=== PATIENT | male | born 1955 | race Caucasian/White ===

== ENCOUNTER → 2017-07-07 | Outpatient (CLI) | payer BC ==
[~2017-07-07] MED LIST: HYDR-2762 PO; LISI10TA2 PO; SILD20TA2 PO; TEST200V3 IM
--- NOTE | 2017-07-07 13:09 | EKG ---
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
[2017-07-07 13:14] LABS: BASO % 1 % (0-3); EOS % 1 % (0-3); HEMATOCRIT 43.9 % (39.0-53.0); HEMOGLOBIN 14.8 g/dL (13.0-17.5); LYMPH # 1.2 x10^3/uL (1.0-4.8); LYMPH % 22 % (24-48); MEAN CORPUSCULAR HEMOGLOBIN 32 pg (25-35); MEAN CORPUSCULAR HGB CONC 34 g/dL (31-37); MEAN CORPUSCULAR VOLUME 95 fL (79-100); MONO % 9 % (0-9); NEUT % 68 % (31-73); PLATELET COUNT 253 x10^3/uL (140-400); RED BLOOD COUNT 4.64 x10^6/uL (4.30-5.70); RED CELL DISTRIBUTION WIDTH 13.7 % (11.5-14.5); WHITE BLOOD COUNT 5.7 x10^3/uL (4.0-11.0)
[2017-07-07 13:35] LABS: INR 1.1 (0.8-1.1); PROTHROMBIN TIME PATIENT 13.2 SEC (11.7-14.0)
[2017-07-07 13:59] LABS: ALBUMIN 3.6 g/dL (3.4-5.0); ALBUMIN/GLOBULIN RATIO 1.2 (1.0-1.7); CALCIUM 8.6 mg/dL (8.5-10.1); GFR 75.7; POTASSIUM 3.7 mmol/L (3.5-5.1); TOTAL BILIRUBIN 0.9 mg/dL (0.2-1.0); TOTAL PROTEIN 6.6 g/dL (6.4-8.2)
--- NOTE | 2017-07-09 14:01 | PREOP HP ---
DATE OF SERVICE: 07/14/2017 Dimitri Elder [address]ating for Dr. Adriel Mason. HISTORY OF PRESENT ILLNESS: The patient is a pleasant 62-year-old, who over the last several years has had problems with increasing lower back pain and pain which radiates into his buttocks. The left leg did have significant pain as well as that, but the problem improved significantly. If anything, his back has worsened recently. He says since January of this year, the pain has become much worse. He rates his pain as a ____ and 8/10. Changing position seems to worsen with the problem. He takes [place] for pain. He had epidural steroid injections which helped temporarily but offered no lasting relief. He is scheduled to start physical therapy tomorrow. PAST MEDICAL HISTORY: Arthritis and hypertension. PAST SURGICAL HISTORY: Abdomen surgery in 2004. 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 . Exercises daily. Denies tobacco use. Drinks 2 drinks daily. Drinks coffee daily. ALLERGIES: No known drug allergies. CURRENT MEDICATIONS: Lisinopril, testosterone and [place]. REVIEW OF SYSTEMS: A 12-point review of systems was obtained and is noncontributory, except for that mentioned above. NEUROSURGERY EXAMINATION: GENERAL APPEARANCE: Alert, pleasant, in no acute distress. HEAD: Normocephalic and atraumatic. SKIN: Warm and dry. MUSCULOSKELETAL: Lumbar paraspinal muscle bulk is normal, restricted range of motion of the lumbar spine, mild to moderate tenderness of the lower lumbar spine with palpation, normal range of motion of the lower extremities bilaterally. EXTREMITIES: No clubbing, cyanosis or edema. NEUROLOGIC: Alert and oriented x 3, normal recent and remote memory, strength 5/5 in bilateral lower extremities, sensory was intact to light touch in the lower extremities bilaterally, reflexes were trace and symmetric in bilateral lower extremities, positive straight leg raising on the left with left-sided back, buttock and posterior thigh pain and negative straight leg raising on the right, normal gait. IMAGING REVIEW: I reviewed his imaging studies. There is severe central canal stenosis at L4-L5 due to a combination of 10 mm right-sided synovial cyst as well as facet arthropathy and a ligamentum flavum thickening. There is also a small 5 mm subligamentous left-sided synovial cyst present. After I saw him last, I did obtain lumbar flexion and extension x-rays in which there was mild anterior subluxation of L4-L5 and extension, which significantly worsens with flexion, suggesting instability. ASSESSMENT: 1. Spinal stenosis, lumbar region. 2. Spondylolisthesis, lumbar region. 3. Other bursal cyst, unspecified site. PLAN: He has severe lumbar spinal stenosis at L4-L5 along with bilateral synovial cysts present. There is significant motion on flexion and extension x-rays. My recommendation is he undergo wide decompression at L4-L5 with removal of the synovial cyst. This can be combined with an instrumented lumbar fusion. I spoke with him about the anterior and posterior surgery. I spoke about the technique of the operation including the risk of nerve injury and infection. He understands. He would like to go ahead. We will make the arrangements. ADRIEL MASON MD DR: BRUNILDA/anna JOB#: [id number] / [id number]
== END | disposition home or self-care (01) ==
LOC: SURGPAT 11:55
PROVIDERS: ATTEND Neurological Surgery
DX: M48.06 Spinal stenosis, lumbar region (principal); M43.16 Spondylolisthesis, lumbar region; M71.38 Other bursal cyst, other site
CPT/HCPCS: 36415; 80053; 85025; 85610; 85730; 87641; 93005

== ENCOUNTER → 2020-06-03 | Outpatient (CLI) | payer MEDICARE ==
[2017-07-15 11:15] VITALS: BP 117/77
[~2020-06-03] MED LIST changes: +ASPI1TAB31 PO; +DOCU-109 PO; -HYDR-2762 PO; +HYDR-2765 PO; +METH-38 PO; +METH750T2 PO; +OXYC1TAB7 PO; -SILD20TA2 PO; +SILD20TA4 PO
[2020-06-03 14:04] LABS: BASO % 1 % (0-3); EOS # 0.1 x10^3/uL (0.0-0.7); EOS % 2 % (0-3); HEMATOCRIT 41.9 % (39.0-53.0); HEMOGLOBIN 14.5 g/dL (13.0-17.5); LYMPH # 1.2 x10^3/uL (1.0-4.8); LYMPH % 29 % (24-48); MEAN CORPUSCULAR HEMOGLOBIN 32 pg (25-35); MEAN CORPUSCULAR HGB CONC 35 g/dL (31-37); MEAN CORPUSCULAR VOLUME 92 fL (79-100); MONO # 0.4 x10^3/uL (0.0-1.1); MONO % 10 % (0-9); NEUT # 2.5 x10^3/uL (1.8-7.7); NEUT % 59 % (31-73); PLATELET COUNT 261 x10^3/uL (140-400); RED BLOOD COUNT 4.58 x10^6/uL (4.30-5.70); RED CELL DISTRIBUTION WIDTH 14.5 % (11.5-14.5); WHITE BLOOD COUNT 4.3 x10^3/uL (4.0-11.0)
[2020-06-03 14:40] LABS: ALBUMIN 3.7 g/dL (3.4-5.0); ALBUMIN/GLOBULIN RATIO 1.4 (1.0-1.7); CALCIUM 8.9 mg/dL (8.5-10.1); POTASSIUM 4.2 mmol/L (3.5-5.1); TOTAL BILIRUBIN 0.7 mg/dL (0.2-1.0); TOTAL PROTEIN 6.4 g/dL (6.4-8.2)
== END ==
LOC: SURGPAT 13:12
PROVIDERS: ATTEND Neurological Surgery
DX: Z01.818 Encounter for other preprocedural examination (principal); Z11.59 Encounter for screening for other viral diseases; M50.13 Cervical disc disorder with radiculopathy, cervicothoracic region
CPT/HCPCS: 80053; 85025; 87641; U0003; 36415

== ENCOUNTER 2020-06-06 07:20 | Day surgery (SDC) | payer MEDICARE, OTHER ==
--- NOTE | 2020-06-05 12:46 | HP ---
ADMIT DATE: 06/06/2020 DATE OF SURGERY: 06/06/2020 HISTORY OF PRESENT ILLNESS: The patient is a pleasant 65-year-old, who has difficulty with right hand weakness. 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 He says his index finger is weak. He notes tingling and numbness in the fingers of his right hand. He said this problem has been occurring since 2003. It had become much more significant recently. He said a few months ago, he painted his house and that he noticed this problem. His neck pain has not been an issue for him. He did have physical therapy about 4 weeks ago, which did not help. The left side is not involved. PAST MEDICAL HISTORY: Arthritis, hypertension, thumb surgery in 2004 and a lumbar decompression and fusion at L4-L5 in 06/2017. FAMILY HISTORY: Cancer. 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 . Exercises daily. Denies tobacco use. Drinks 2 alcoholic drinks daily. Drinks coffee daily. ALLERGIES: No known drug allergies. CURRENT MEDICATIONS: Multivitamin, omega 3, probiotic. REVIEW OF SYSTEMS: A 12-point review of systems was obtained and is noncontributory except for that mentioned above. PHYSICAL EXAMINATION: NEUROSURGERY EXAMINATION: GENERAL APPEARANCE: Alert, pleasant, no acute distress. HEAD: Normocephalic and atraumatic. NECK AND THYROID: Vtbn-gw-ogeonnzl tenderness with palpation of posterior cervical region. SKIN: Warm and dry. MUSCULOSKELETAL: Cervical paraspinal muscle bulk is normal, restricted range of motion of the cervical spine, normal range of motion of the upper extremities bilaterally. EXTREMITIES: No clubbing, cyanosis or edema. NEUROLOGIC: Alert and oriented x 3, normal recent and remote memory, strength 5/5 in bilateral upper and lower extremities except for an inability to hyperextend the right index finger, weakness of the flexor digiti quinti minimi, 4/5 strength of abduction and adduction of the right hand. I thought his opponens pollicis was a 5/5, sensory was intact to light touch in the upper and lower extremities except for decreased involving the little finger and ulnar side of the palm to light touch. Reflexes are present and symmetric in the upper and lower extremities bilaterally, normal gait. IMAGING: I reviewed his cervical MRI scan. He does have a moderate stenosis at C3-C4. At C7-T1 on the right, there is a focal disc herniation in the neural foramen. This does encroach upon the right C8 nerve root. I also reviewed an EMG nerve conduction study, which is consistent with C8 radiculopathy. ASSESSMENT/ PLAN: Most likely, we are dealing with a C8 radiculopathy, which has been confirmed with an EMG nerve conduction study. I spoke with him about the posterior cervical decompressive surgery/discectomy. I discussed the surgery and the risks as well as the postoperative course. He understands. He would like to go ahead. We will make the arrangements. RICARDO MASON MD DR: BRUNILDA/anna JOB#: [id number] / [id number] KASH
[~2020-06-06 07:20] MED LIST changes: +BACITRACIN 50,000 UNIT in IV NORMAL SALINE 1000ML BAG 1,000 ML IRR ONE; -DOCU-109 PO; +HYDROmorphone 2 MG/ML VIAL IV PRN; +IV RINGERS,LACTATED 1000ML 1,000 ML IV SCH; -METH-38 PO; +MORPHINE SULFATE 2 MG/ML VIAL. IV PRN; +ONDANSETRON PF 4 MG/2 ML VIAL. IV PRN; +PROCHLORPERAZINE 10 MG/2 ML VIAL. IV PRN; +fentaNYL PF VIAL 100 MCG/2 ML VIAL IV PRN
[2020-06-06] MEDS ORDERED: THROMBIN TOPICAL 20,000 UNIT SPRAY.SYRN KIT TP ONE (07:29)
[2020-06-06] MEDS ORDERED: BUPIVACAINE-EPI 0.5%-1:200000 MPF 30 ML VIAL. ONE (07:29)
[2020-06-06] MEDS ORDERED: KETOROLAC 60 MG/2 ML VIAL. ONE (07:29)
[2020-06-06] MEDS ORDERED: GELATIN SPONGE SIZE 100. ONE (07:29)
[2020-06-06] MEDS ORDERED: PHENYLEPHRINE 10 MG/ML VIAL. ONE (07:45)
[2020-06-06] MEDS ORDERED: ONDANSETRON PF 4 MG/2 ML VIAL. ONE (07:45)
[2020-06-06] MEDS ORDERED: REMIFENTANIL 2 MG VIAL. IV ONE (07:45)
[2020-06-06] MEDS ORDERED: SUCCINYLCHOLINE 200 MG/10 ML VIAL. ONE (07:45)
[2020-06-06] MEDS ORDERED: ROCURONIUM 50 MG/5 ML VIAL. ONE (07:45)
[2020-06-06] MEDS ORDERED: DEXAMETHASONE SOD PHOS 4 MG/ML VIAL ONE (07:45)
[2020-06-06] MEDS ORDERED: LIDOCAINE 2% PF 5 ML VIAL. ONE (07:45)
[2020-06-06] MEDS ORDERED: fentaNYL PF VIAL 100 MCG/2 ML VIAL ONE ×2 (07:45→12:23)
[2020-06-06] MEDS ORDERED: PROPOFOL 10 MG/ML (20ML) VIAL. IV ONE (07:45)
[2020-06-06] MEDS ORDERED: PROPOFOL 50 ML IV ONE ×2 (07:46→09:47)
[2020-06-06] MEDS ORDERED: 0.9 % SODIUM CHLORIDE 20 ML VIAL. IJ ONE (07:46)
[2020-06-06] MEDS ORDERED: VANCOMYCIN 1GM IVPB FOR OMNI 250 ML IV STA (07:58)
[2020-06-06] MEDS ORDERED: VANCOMYCIN 1GM IVPB FOR OMNI 250 ML ONE (08:04)
[2020-06-06] MEDS ORDERED: HYDROmorphone 2 MG/ML VIAL ONE (09:55)
[2020-06-06] MEDS ORDERED: GLYCOPYRROLATE 1 MG/5 ML VIAL. ONE (11:03)
[2020-06-06] MEDS ORDERED: NEOSTIGMINE METHYLSULFATE 5 MG/5 ML SYRINGE. ONE (11:03)
[2020-06-06] MEDS ORDERED: METH-38 PO (11:26)
[2020-06-06] MEDS ORDERED: HYDR-2765 PO (11:26)
[2020-06-06] MEDS ORDERED: DOCU-109 PO (11:26)
--- NOTE | 2020-06-06 11:27 | DISCH ---
DISCHARGE INSTRUCTIONS Condition on Discharge Condition on Discharge: Stable Activity After Discharge Activity Instructions for Disc: Activity as tolerated, Avoid exertion Other activity instructions: no driving for a week Bathing Instructions: Shower-keep dressing dry Lifting Instructions after Dis: No heavy lifting, No pulling or pushing, Do not lift >10 pounds Diet after Discharge Additional Diet Restrictions: resume home diet Wound Incision Care Wound/Incision Care: Ice to area for comfort Other wound/incision instructi: may remove dressing in 48 hours if dry then may shower, no soaking Contacting the after DC Call your doctor for: Concerns you may have Follow-Up Follow up with: Dr. Mason's nurse in 2 weeks [phone] RICARDO MASON MD Jun 06, 2020 11:27
--- NOTE | 2020-06-06 11:44 | OP ---
DATE OF SURGERY: 06/06/2020 PREOPERATIVE DIAGNOSIS: Herniated cervical disc, C7-T1 right with right cervical radiculopathy. POSTOPERATIVE DIAGNOSIS: Herniated cervical disc, C7-T1 right with right cervical radiculopathy. OPERATION PERFORMED: Hemilaminotomy and medial facetotomy, C6-C7 right with removal of HNP and decompression of the right C8 nerve root. The operation was done with EMG monitoring, SSEP monitoring, fluoroscopy, microscopic dissection, motor evoked potentials. SURGEON: Adriel Mason M.D. FIELD CROP GROWER: GRAHAM Valdivia assisted with the surgery. She assisted with the exposure, the removal of the herniated disc as well as closure. OPERATIVE INDICATIONS: The patient is a pleasant 65-year-old man who developed intractable problems with right hand weakness. There was some pain, but the majority of the problem was weakness and loss of use of the function of the right hand that is on electrophysiologic studies, he had a clear C8 radiculopathy. On imaging studies, there was a focal disc herniation on the right at C7-T1. I recommended posterior cervical surgery after the patient failed to improve with conservative measures. He understood the surgery, the risks, technique and he wished to go ahead. DESCRIPTION OF PROCEDURE: Following general endotracheal anesthesia, the patient was positioned prone on the Nikhil table in Nguyen pins. His neck was in a neutral position. The posterior cervical region was then prepped and draped in standard fashion. LETHA hose and AV impulse boots were applied for DVT prophylaxis. The microscope was draped. Fluoroscopy was draped and brought into field. Monitoring was established. Vancomycin 1 gram was given about 1 hour prior to initiation of surgery. Using fluoroscopic guidance, a midline incision was made directly over the C7-T1 interspace. I dissected down through skin and subcutaneous tissue except the paraspinal muscles and placed a Lyons microdisk retractor. I brought in the microscope. Using the high speed air drill, I burred down a generous hemilaminotomy and visualized the dura and the exiting C8 root and followed this laterally, thinning the bone and unroofing it and then using a blunt hook. I passed this gently beneath the root lifting the root superiorly and laterally. There was a focal disc herniation, which was partially subligamentous, partially epidural and I grasped and I was able to remove it in two small and one large piece. I then passed my blunt hook out carefully and explored carefully. There was no other disc material, everything was quite clear. I irrigated with antibiotic solution and obtained excellent hemostasis. I then laid Gelfoam over the hemilaminotomy site. I removed the retractor. I assured myself of perfect hemostasis in the muscle and I closed the wound with absorbable suture and the skin was closed with skin mary carmen. I felt the surgery went very well. EMG monitoring was performed and was unremarkable during the operation. There were no difficulties whatsoever. I felt the surgery went very well. ADRIEL MASON MD DR: BRUNILDA/anna JOB#: [id number] / [id number] KASH
[2020-06-06] MEDS: LIDOCAINE 1% PF 2 ML VIAL. ID PRN ×2 (12:08→12:52)
[2020-06-06] MEDS ORDERED: HYDROcodone/APAP 7.5/325MG 1 TAB TABLET PO ONE ×2 (12:15→14:00)
[2020-06-06] MEDS: fentaNYL PF VIAL 100 MCG/2 ML VIAL IV PRN ×2 (12:45→12:54)
[2020-06-06 14:00] VITALS: BP 134/84
--- NOTE | 2020-06-07 15:08 | PATHOLOGY ---
[facility] Accession Number: [id number] . 01 Material submitted: . vertebral column - CERVICAL DISC AND DECOMPRESSION . 01 Clinical history: . Cervical herniated disc with radiculopathy . 02 Diagnosis: Segments of fibrocartilaginous and fibroadipose tissue and bone, designated "cervical disc and decompression": - Degenerative changes of fibrocartilaginous tissue. LBQ 06/07/2020 1307 Local . 02 Comment: There is no evidence of an acute inflammatory process or malignancy. (JPM/db; 06/07/2020) . 02 Electronically signed: . Emanuel Robertson MD, Pathologist NPI- [id number] . 01 Gross description: . The specimen is received in formalin, labeled "Delgado Fink, cervical disc and decompression" and consists of multiple fragments of pink-khalil tissue and bone measuring 2.3 x 1.5 x 0.5 cm in aggregate which are entirely submitted in A1 following decalcification. (SDY; 06/06/2020) SYU/SYU 06/06/2020 1650 Local . 02 Pathologist provided ICD-10: M50.20, M54.10 . 02 CPT . 638253, 218503 Specimen Comment: A courtesy copy of this report has been sent to [phone] Specimen Comment: [id number] Specimen Comment: Report sent to / DR MCGREGOR Performed at: 01 [facility] [address], [place] [id number] MD Noé Dorado MD Phone: [phone] Performed at: 02 [facility] [address], [place] [id number] MD Emanuel Robertson MD Phone: [phone]
== END 2020-06-06 14:16 | disposition home or self-care (01) ==
LOC: SURG 07:20
PROVIDERS: ATTEND Neurological Surgery
DX: M50.13 Cervical disc disorder with radiculopathy, cervicothoracic region (principal); M19.90 Unspecified osteoarthritis, unspecified site; I10 Essential (primary) hypertension; Z98.890 Other specified postprocedural states; Z79.899 Other long term (current) drug therapy; Z88.8 Allergy status to other drugs, medicaments and biological substances
CPT/HCPCS: 63045; 88304; 88311; 97162; 97530; A7015; J0330; J1100; J1170; J1885; J2370; J2405; J2704; J2710; J3010; J3370; J3490; J7030; 76000